=== PATIENT | female | born 1960 | race Caucasian/White ===

== ENCOUNTER 2017-06-03 09:24 | Outpatient (CLI) | payer OTHER | END 2017-06-03 15:54 | disposition home or self-care (01) | LOC: HPC 09:24 | DX: K42.9 Umbilical hernia without obstruction or gangrene (principal); B19.20 Unspecified viral hepatitis C without hepatic coma; K74.60 Unspecified cirrhosis of liver; E11.9 Type 2 diabetes mellitus without complications; E78.5 Hyperlipidemia, unspecified; F32.9 Major depressive disorder, single episode, unspecified; E03.9 Hypothyroidism, unspecified; Z68.39 Body mass index [BMI] 39.0-39.9, adult | CPT/HCPCS: G0463 ==